=== PATIENT | female | born 2000 | race Caucasian/White ===

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

== ENCOUNTER 2021-05-10 17:59 | Emergency (ER) | payer SELFPAY ==
--- NOTE | 2021-05-10 19:03 | EDM.PDOCBH ---
ED HPI GENERAL MEDICAL PROBLEM - General Chief Complaint: Behavioral/Psych Stated Complaint: HARMFUL THOUGHTS Time Seen by Provider: 05/10/21 18:59 Source of Information: Reports: Patient, RN Notes Reviewed - History of Present Illness INITIAL COMMENTS - FREE TEXT/NARRATIVE: 20 yr old female brought him by [facility] staff member. Hx of depression for many yrs. Broke up with boyfriend about 5 days ago. Left town briefly for family matters. When she got back found out he is with a different partner after having had a relationship with him for 6 yrs, had been living together. Has seen Dr Fung in the past, has been on topiramate 50 mg hs. She had gone off that for awhile, started back on that 5 to 6 days ago. She does not drink alcohol, does not do drugs. Has not been otherwise recently ill. - Related Data Allergies Allergy/AdvReac Type Severity Reaction Status Date / Time No Known Allergies Allergy Verified 05/10/21 18:34 Home Meds: Home Meds LORazepam [Ativan] 0.5 mg PO BID #10 tab 05/10/21 [Rx] Topiramate 50 mg PO BEDTIME 05/10/21 [History] Past Medical History - Past Health History Medical/Surgical History: Denies Medical/Surgical History Psychiatric History: Reports: Anxiety Social & Family History - Caffeine Use Caffeine Use: Reports: None ED ROS GENERAL - Review of Systems Review Of Systems: See Below Constitutional: Denies: Fever, Chills HEENT: Reports: No Symptoms Respiratory: Denies: Shortness of Breath, Cough Cardiovascular: Denies: Chest Pain GI/Abdominal: Denies: Vomiting Musculoskeletal: Reports: No Symptoms Skin: Reports: No Symptoms Neurological: Reports: No Symptoms Psychiatric: Reports: Anxiety, Depression, Suicidal Ideation ED EXAM, BEHAVIORAL HEALTH - Physical Exam Exam: See Below General Appearance: Alert Throat/Mouth: Normal Inspection Head: Atraumatic Neck: Supple Respiratory/Chest: No Respiratory Distress, Lungs Clear, Normal Breath Sounds Cardiovascular: Regular Rate, Rhythm Extremities: Normal Inspection Psychiatric: Alert, Normal Affect, Normal Cognition, Depressed Mood (mild). No: Threatening Behavior Skin Exam: Warm, Dry, Normal color COURSE, BEHAVIORAL HEALTH COMP - Course Vital Signs: Last Vital Signs Temp 97.6 F 05/10/21 18:30 Pulse 97 05/10/21 18:30 Resp 16 05/10/21 18:30 BP 140/83 11/05/21 18:30 Pulse Ox 97 05/10/21 18:30 Orders, Labs, Meds: Active Orders 24 hr Category Date Time Status Suicide Precautions [RC] .Per Facility Policy Care 05/10/21 18:35 Active Laboratory Tests 05/10/21 Range/Units 19:28 SARS-CoV-2 RNA (YURY) Negative (NEGATIVE) Medications Discontinued Medications Generic Name Dose Route Start Last Admin Trade Name Gurvinder PRN Reason Stop Dose Admin Lorazepam 0.5 mg 05/10/21 19:45 05/10/21 20:21 Lorazepam 0.5 Mg Tab PO 05/10/21 19:46 0.5 mg ONETIME ONE Administration Re-Assessment/Re-Exam: Pt has no suicidal plan but has had throughts of ending her life with the recent devastating break up with her boyfriend. She states she does feel more safe, secure, less depressed when with other people. The [facility] looks like a good option for her. Covid screen pending. Will start her on ativan 0.5 mg bid to help get her through the weekend. Discharge instr. as documented. Departure - Departure Time of Disposition: 20:00 Disposition: Home, Self-Care 01 Condition: Fair Clinical Impression: Depressive disorder, Suicidal thoughts, Anxiety - Discharge Information Prescriptions: LORazepam [Ativan] 0.5 mg PO BID #10 tab Instructions: Major Depressive Disorder, Adult, [id number], Suicidal Feelings: How to Help Yourself, Managing Anxiety, Adult Referrals: Shirley Candelario MD [Primary Care Provider] - Forms: ED Department Discharge Additional Instructions: Continue topiramate once daily 50 mg at bedtime. Ativan 0.5 mg twice daily, next dose tomorrow morning. If the ativan causes too much drowsiness that dosage can be decreased to 0.25 mg twice daily. A medical screening exam has been done. It is safe for you to be at the [facility]. See Dr Fung as soon as possible early next week. Return to ED as needed. Sepsis Event Note (ED) - Evaluation Sepsis Screening Result: No Definite Risk - Focused Exam Vital Signs: Vital Signs Temp Pulse Resp BP Pulse Ox 05/10/21 18:30 97.6 F 97 16 140/83 97 - My Orders Last 24 Hours: My Active Orders 05/10/21 18:35 Suicide Precautions [RC] .Per Facility Policy - Assessment/Plan Last 24 Hours: My Active Orders 05/10/21 18:35 Suicide Precautions [RC] .Per Facility Policy
[2021-05-10] MEDS ORDERED: LORazepam 0.5 MG Tab PO ONE (19:45)
== END 2021-05-10 20:45 | disposition home or self-care (01) ==
LOC: JD.ED 17:59
DX: F32.A Depression, unspecified (principal); F41.9 Anxiety disorder, unspecified; Z20.822 Contact with and (suspected) exposure to COVID-19
CPT/HCPCS: 87635; 99284; A9270; U0002

== ENCOUNTER 2022-12-10 16:44 | Emergency (ER) | payer MEDICAID ==
[2022-12-10 18:44] LABS: CORONAVIRUS COVID-19 NAA NEGATIVE (NEGATIVE); INFLUENZA A NAA NEGATIVE (NEGATIVE); RESPIRATORY SYNCYTIAL VIR NAA NEGATIVE (NEGATIVE)
== END 2022-12-10 19:40 | disposition home or self-care (01) ==
LOC: JD.ED 16:44
DX: J02.8 Acute pharyngitis due to other specified organisms (principal); H66.001 Acute suppurative otitis media without spontaneous rupture of ear drum, right ear; F17.210 Nicotine dependence, cigarettes, uncomplicated
CPT/HCPCS: 0241U; 36415; 81025; 86308; 99283

== ENCOUNTER 2023-12-01 10:14 | Emergency (ER) | payer OTHER ==
[2023-12-01] MEDS: Sodium Chloride 0.9% 10 ML Syringe FLUSH PRN (11:17)
[2023-12-01] MEDS: cefTRIAXone 2 GM in Sodium Chloride 0.9% 100 ML IV ONE (11:17)
[2023-12-01 11:32] LABS: BASOPHILS ABSOLUTE AUTO 0.1 K/mm3 (0.0-0.2); BASOPHILS PERCENT AUTO 0.7 % (0.0-1.0); EOSINOPHILS ABSOLUTE AUTO 0.1 K/mm3 (0.0-0.4); EOSINOPHILS PERCENT AUTO 0.8 % (0.0-6.0); HEMOGLOBIN 14.4 gm/dl (12.0-16.0); IMMATURE GRAN ABSOLUTE AUTO 0.03 K/mm3 (0.00-0.05); IMMATURE GRAN PERCENT AUTO 0.3 % (0.0-0.4); LYMPHOCYTES ABSOLUTE AUTO 1.9 K/mm3 (1.0-4.8); LYMPHOCYTES PERCENT AUTO 21.8 % (24.0-44.0); MEAN CORPUSCULAR HEMOGLOBIN 30.6 pg (28.0-32.0); MEAN CORPUSCULAR HGB CONC 34.3 g/dl (32.0-36.0); MEAN CORPUSCULAR VOLUME 89.2 fl (83.0-99.0); MEAN PLATELET VOLUME 11.6 fl (9.4-12.3); MONOCYTES ABSOLUTE AUTO 0.8 K/mm3 (0.0-0.8); MONOCYTES PERCENT AUTO 9.3 % (0.0-8.0); NEUTROPHILS ABSOLUTE AUTO 5.8 K/mm3 (1.8-7.7); NEUTROPHILS PERCENT AUTO 67.1 % (41.0-71.0); PLATELET COUNT,PLT 338 K/mm3 (150-400); RED BLOOD CELL COUNT 4.71 M/mm3 (4.10-5.30); WHITE BLOOD CELL COUNT,WBC 8.68 K/mm3 (3.9-11.3)
[2023-12-01 11:52] LABS: A/G RATIO 1.1 (1-2); ANION GAP 13.2 (5-15); BILIRUBIN TOTAL 0.4 mg/dL (0.2-1.0); BUN/CREATININE RATIO 14.4 (14-18); C-REACTIVE PROTEIN 1.79 mg/dL (<0.30); CALCIUM 9.4 mg/dL (8.5-10.1); CREATININE 0.9 mg/dL (0.55-1.02); EST CRCL DRUG DOSING (CG) 91.01 mL/min; POTASSIUM,K 4.2 mEq/L (3.5-5.1); PROTEIN TOTAL,TP 7.7 g/dl (6.4-8.2)
[2023-12-01] MEDS: Sodium Chloride 0.9% 10 ML Syringe FLUSH SCH (12:01)
[2023-12-01] MEDS: Iopamidol 612 MG/ML 100 ML Bottle IVPUSH SCH (12:01)
[2023-12-01] MEDS: Iopamidol 612 MG/ML 30 ML SDV IVPUSH SCH (12:01)
== END 2023-12-01 13:45 | disposition home or self-care (01) ==
LOC: JD.ED 10:14
DX: L03.316 Cellulitis of umbilicus (principal); Z79.899 Other long term (current) drug therapy; Z86.16 Personal history of COVID-19
CPT/HCPCS: 36415; 74177; 80053; 84703; 85025; 86140; 96365; 99284; J0696; J3490; Q9967